=== PATIENT | male | born 1935 | race Caucasian/White ===

== ENCOUNTER → 2023-05-12 | Outpatient (CLI) | payer MEDICARE ==
--- NOTE | 2023-05-12 21:20 | US ---
EXAMINATION TYPE: US arterial LE multi level DATE OF EXAM: 05/12/2023 12:33 PM CLINICAL INDICATION: Male, 88 years old with history of M79.604 PAIN IN R LEG M79.605 PAIN IN L LEG; Pt states pain in both legs History of: Smoker: Yes Hypertension: Yes Diabetic: No Hyperlipidemia: Yes TIA/CVA: No Previous Vascular Surgery: No CAD: No SD: No Vascular Ulcers: Yes Claudication: Yes Gangrene: No Doppler Waveforms: Biphasic waveforms are present throughout the lower extremities. Right Brachial Pressure: 118 Left Brachial Pressure: 125 Ankle-Brachial Indices: Right: 1.2 Left: 0.9 IMPRESSION: 1. No suspicious diminished ratios to suggest significant flow-limiting stenosis bilateral lower extr emities.
== END | disposition home or self-care (01) ==
LOC: RADUSWWP 12:00
PROVIDERS: ATTEND Family Medicine
DX: M79.604 Pain in right leg (principal); M79.605 Pain in left leg
CPT/HCPCS: 93923

== ENCOUNTER → 2024-06-01 | Outpatient (CLI) | payer MEDICARE ==
--- NOTE | 2024-06-01 14:40 | US ---
EXAMINATION TYPE: US kidneys/renal and bladder DATE OF EXAM: 06/01/2024 COMPARISON: NONE CLINICAL INDICATION: Male, 89 years old with history of N18.2 Stage III ckd; stage 3 CKD TECHNIQUE: Grayscale imaging of the bilateral kidneys and urinary bladder: FINDINGS: EXAM MEASUREMENTS: Right Kidney: 10.2 x 5.7 x 5.3 cm Left Kidney: 11.2 x 4.6 x 5.7 cm Right Kidney: cystic area seen superior pole measuring 2.5 x 2.4 x 2.4cm Left Kidney: cystic area seen medially measuring 1.3 x 1.2 x 1.1cm Bladder: diverticulum see on the left side of bladder Bilateral Jets seen: Yes There is no evidence for hydronephrosis at this point in time. No nephrolithiasis is seen. No everardo s are identified. The urinary bladder is anechoic. IMPRESSION: 1. No evidence for obstructive uropathy. 2. Bilateral simple appearing renal cysts. [facility], , 06/01/2024 2:38 PM
== END | disposition home or self-care (01) ==
LOC: RADUSWWP 13:08
PROVIDERS: ATTEND Internal Medicine
DX: N18.2 Chronic kidney disease, stage 2 (mild) (principal); N28.1 Cyst of kidney, acquired
CPT/HCPCS: 76770

== ENCOUNTER → 2024-09-21 | Outpatient (CLI) | payer MEDICARE ==
--- NOTE | 2024-09-23 14:26 | XR ---
EXAMINATION TYPE: XR bone survey complete DATE OF EXAM: 09/21/2024 12:36 PM COMPARISON: None. CLINICAL INDICATION: Male, 89 years old with history of D47.2, N18.9, I10, J44.9, pain TECHNIQUE: Multiple view(s) obtained. FINDINGS: Chest: Heart size is normal. Pulmonary vasculature is normal. Right upper lobe infiltrate appears to be present. Lungs otherwise appear clear Cervical spine: There is loss of disc height present within the cervical spine greatest at C5-6 C6-7. Some endplate spurring may be present C6-7. Posterior spinal lamellar line is intact. No suspicious lytic lesions evident. Facet changes are evident. Humeri: No suspicious lytic lesions evident. No acute osseous abnormality bilateral humeri. Skull: No suspicious lytic lesions within the calvarium. Sella appears unremarkable. Thoracic spine: There are 12 thoracic type vertebral bodies. Pedicles are intact. Mild scoliosis is p resent. Vertebral body heights are preserved. No suspicious lytic lesions evident. Lumbar spine: 2 views lumbar spine obtained. There are 5 lumbar-type vertebral bodies. Pedicles are i ntact. Degenerative disc changes loss of disc height are present L4-5 and L5-S1. Mild degenerative di sc changes present at L1-2. No suspicious lytic lesions evident. Pelvis: Single AP view the pelvis is obtained. Fecal debris is at the rectum. Femoral heads articulat e with the acetabulum. Sacroiliac joints and symphysis pubis are normal. No acute fracture or disloca tion evident. Bilateral femurs: No acute osseous abnormality. No suspicious lytic lesions evident. IMPRESSION: 1. No suspicious lytic lesions of bone survey. 2. Right upper lobe infiltrate may be present. Correlate for atelectasis or pneumonia. 3. Degenerative changes discussed above [facility], , 09/23/2024 2:23 PM
== END | disposition home or self-care (01) ==
LOC: RADXRMAIN 11:46
PROVIDERS: ATTEND Internal Medicine Hematology & Oncology
DX: M51.379 Other intervertebral disc degeneration, lumbosacral region without mention of lumbar back pain or lower extremity pain (principal); D47.2 Monoclonal gammopathy; N18.9 Chronic kidney disease, unspecified; J44.9 Chronic obstructive pulmonary disease, unspecified; I12.9 Hypertensive chronic kidney disease with stage 1 through stage 4 chronic kidney disease, or unspecified chronic kidney disease
CPT/HCPCS: 77075